=== PATIENT | male | born 1945 | race Caucasian/White ===

== ENCOUNTER 2021-01-19 11:12 | Emergency (ER) | payer OTHER ==
[~2021-01-19] VITALS: Ht 182.9 cm; Wt 77.1 kg
--- NOTE | 2021-01-19 11:19 | NUR ---
PT IS IN ROOM #1B. DR VIDAL EVALUATED THE PT.
[2021-01-19] MEDS ORDERED: ATOR40TA PO (11:23)
[2021-01-19 11:41] LABS: HEMATOCRIT 35.5 % (36.7-47.1); MEAN CORPUSCULAR VOLUME 91.7 fL (73.0-96.2); PLATELET COUNT (AUTO) 237 K/uL (152-348)
[2021-01-19 11:42] LABS: *BILIRUBIN,URIN NEGATIVE (NEGATIVE); *BLOOD, URINE NEGATIVE (NEGATIVE); *CLARITY,URINE CLEAR (CLEAR); *COLOR,URINE YELLOW (YELLOW); *KETONES,URINE NEGATIVE (NEGATIVE); *UROBILINOGEN,URINE 0.2 E.U./dl (NORMAL); LEUKOCYTE ESTERASE ,URINE NEGATIVE (NEGATIVE); NITRITE, URINE NEGATIVE (NEGATIVE); PH,URINE 8.5 (5.0-8.0); UGLUCOSE NEGATIVE (NEGATIVE)
[2021-01-19 11:47] LABS: CREATININE 0.8 mg/dL (0.6-1.3); POTASSIUM 3.9 mmol/L (3.5-5.1)
[2021-01-19 11:57] LABS: BILIRUBIN,DIRECT 0.1 mg/dL (0.0-0.2); BILIRUBIN,TOTAL 0.3 mg/dL (0.2-1.0); TOTAL PROTEIN, SERUM 7.4 g/dL (6.4-8.2)
--- NOTE | 2021-01-19 13:23 | NUR ---
DR VIDAL TALKED TO DR CRUZ ABOUT PT's TRANSFER TO [facility].
[2021-01-19] MEDS ORDERED: IV NORMAL SALINE 1000 ML BAG IV ONE (13:45)
[2021-01-19] MEDS ORDERED: PIPERACILLIN SODIUM/TAZOBACTAM 3.375 G in IV DEXTROSE 5% 50 ML IV ONE (14:15)
[2021-01-19] MEDS ORDERED: PIPERACILLIN/TAZOBACTAM/D5W 50 ML IV ONE (14:35)
--- NOTE | 2021-01-19 14:56 | NUR ---
ACCORDING TO [facility]AT MEASURER LINDA , PT IS GOING TO BE TRANSFERED TO [facility] ER AT [place]. ACCEPTING MD IS DR PETTIT. TELEPHONE NUMBER FOR REPORT IS : [phone]. [id number].
--- NOTE | 2021-01-19 15:11 | NUR ---
PT WAS TRANSFERED TO [facility] [place] [facility]IA [facility]. REPORT WAS GIVEN TO [facility] [employer] MANAGEMENT SUPERVISOR AND TO AMBULANCE RN.
== END 2021-01-19 15:15 | disposition short-term general hospital (02) ==
LOC: ER 11:12
DX: K40.30 Unilateral inguinal hernia, with obstruction, without gangrene, not specified as recurrent (principal); K80.20 Calculus of gallbladder without cholecystitis without obstruction; R00.1 Bradycardia, unspecified; Z20.822 Contact with and (suspected) exposure to COVID-19; R16.0 Hepatomegaly, not elsewhere classified; E78.00 Pure hypercholesterolemia, unspecified; Z79.899 Other long term (current) drug therapy; Z85.46 Personal history of malignant neoplasm of prostate; Z90.79 Acquired absence of other genital organ(s)
CPT/HCPCS: 36415; 71045; 74176; 80048; 80076; 81003; 83605; 83690; 84484; 85025; 85610; 85730; 86850; 86900; 86901; 87426; 93005; 96365; 99291; J2543; 70030-TC; A4663